=== PATIENT | female | born 1965 | race Caucasian/White ===

== ENCOUNTER 2021-03-26 16:30 | Inpatient (IN) ==
[2021-03-26] MEDS ORDERED: tiZANidine 4 MG TABLET PO PRN (22:31)
[2021-03-26] MEDS ORDERED: Acetaminophen 325 MG TABLET PO PRN (22:35)
[2021-03-26] MEDS ORDERED: Naloxone 0.4 MG/ML INJ IVP PRN (22:35)
[2021-03-26] MEDS ORDERED: Ondansetron 4 MG/2 ML VIAL IVP PRN (22:35)
[2021-03-26] MEDS ORDERED: Budesonide/Formoterol 160/4.5 1 PUFF INH IH PRN (22:45)
[2021-03-26] MEDS: 0.9 % Sodium Chloride 1,000 ML IVC SCH (23:26)
[2021-03-26] MEDS: *HR* HYDROmorphone 2 MG TABLET PO PRN (23:35)
[2021-03-26 23:46] LABS: Basophils # 0.1 K/mcL (0.0-0.2); Basophils % 0.6 %; Eosinophils # 0.8 K/mcL (0.0-0.6); Eosinophils % 7.3 %; Hematocrit 35.2 % (35.3-44.9); Hemoglobin 11.4 g/dL (11.5-15.4); Immature Granulocytes % 0.4 % (0-4); Lymphocytes # 1.8 K/mcL (0.6-4.6); Lymphocytes % 16.8 %; Mean Corpuscular HGB Conc 32.4 g/dL (31.6-35.5); Mean Corpuscular Hemoglobin 28.2 pg (28.0-33.3); Mean Corpuscular Volume 87.1 fL (83.0-100.0); Mean Platelet Volume 10.2 fL (9.4-12.4); Monocytes # 1.1 K/mcL (0.0-1.3); Monocytes % 10.6 %; Neutrophils # 6.7 K/mcL (1.6-8.9); Platelet Count 301 K/mcL (140-400); Red Blood Count 4.04 M/mcL (3.82-4.97); Red Cell Distribution Width 14.3 % (11.5-14.5); Segmented Neutrophils % 64.3 %; White Blood Count 10.4 K/mcL (4.3-11.1)
[2021-03-27 00:05] LABS: Alanine Aminotransferase 20 Units/L (7-52); Albumin 3.3 g/dL (3.5-5.7); Albumin/Globulin Ratio 1.1 (1.1-2.2); Alkaline Phosphatase 116 Units/L (34-104); Aspartate Amino Transferase 11 Units/L (13-39); BUN/Creatinine Ratio 20 (6-26); Bilirubin,Direct 0.1 mg/dL (0.0-0.2); Bilirubin,Indirect 0.4 mg/dL (0.0-1.0); Bilirubin,Total 0.5 mg/dL (0.3-1.0); Blood Urea Nitrogen 12 mg/dL (6-20); Calcium 8.5 mg/dL (8.6-10.3); Carbon Dioxide 25 mEq/L (23-29); Chloride 103 mEq/L (98-107); Chol/HDL Ratio 2.4 (0-4.9); Cholesterol 133 mg/dL (< 200); Globulin 3.1 g/dL (2.4-3.5); Glucose 107 mg/dL (70-105); HDL Cholesterol 56 mg/dL (40-59); Iron 12 mcg/dL (50-170); LDL Cholesterol,Calculated 64 mg/dL (< 100); Magnesium 1.8 mg/dL (1.6-2.6); Osmolality,Calculated 286 (280-300); Potassium 3.8 mEq/L (3.5-5.1); Sodium 138 mEq/L (136-145); Total Protein 6.4 g/dL (6.4-8.9); Triglycerides 65 mg/dL (< 150); eGFR For African Americans > 60 (> 60); eGFR For Non-African Americans > 60 (> 60)
[2021-03-27] MEDS ORDERED: Calcium Gluconate 1gm/50mL 1 GM/50 ML BAG IVPB ONE (00:08)
[2021-03-27 00:16] LABS: Thyroid Stimulating Hormone 1.671 mcIU/mL (0.340-5.600)
[2021-03-27 00:22] LABS: Ferritin 161 ng/mL (10-120)
[2021-03-27 00:44] LABS: Influenza A PCR Negative (Negative); Influenza B PCR Negative (Negative); Resp. Syncytial Virus PCR Negative (Negative)
[2021-03-27 00:44] LABS: Folate > 22.3 ng/mL (3.0-16.0); Vitamin B12 431 pg/mL (250-1100); Vitamin D 25 Hydroxy 9 ng/mL (30-80)
[2021-03-27 00:46] LABS: SARS-CoV-2 by PCR (In House) Negative (Negative)
[2021-03-27 01:00] LABS: Bilirubin,Urine Negative (Negative); Blood,Urine Small (Negative); Clarity,Urine Turbid (Clear); Color,Urine Light-Yellow (Yellow); Glucose,Urine (UA) Normal (Normal); Hyaline Casts,Urine Few per lpf (None Seen); Ketones,Urine Negative (Negative); Leukocyte Esterase,Urine Moderate (Negative); Mucus,Urine Few per lpf (None-Few); Nitrite,Urine Negative (Negative); Protein,Urine Trace mg/dL (Neg-Trace); Specific Gravity,Urine 1.022 (1.010-1.025); Squamous Epithelial Cell,Urine Few per hpf (None-Few); Urobilinogen,Urine Normal (Normal); WBC,Urine 15-30 per hpf (0-3)
[2021-03-27] MEDS: *HR* HYDROmorphone 2 MG TABLET PO PRN ×3 (04:38→14:58)
[2021-03-27 04:42] LABS: Mean Corpuscular HGB Conc 32.4 g/dL (31.6-35.5); Mean Corpuscular Hemoglobin 28.1 pg (28.0-33.3); Mean Corpuscular Volume 86.7 fL (83.0-100.0); Mean Platelet Volume 10.2 fL (9.4-12.4); Platelet Count 286 K/mcL (140-400); Red Blood Count 3.92 M/mcL (3.82-4.97); Red Cell Distribution Width 14.4 % (11.5-14.5); White Blood Count 10.8 K/mcL (4.3-11.1)
[2021-03-27 05:02] LABS: BUN/Creatinine Ratio 21 (6-26); Blood Urea Nitrogen 12 mg/dL (6-20); Calcium 8.9 mg/dL (8.6-10.3); Carbon Dioxide 26 mEq/L (23-29); Chloride 103 mEq/L (98-107); Glucose 99 mg/dL (70-105); Osmolality,Calculated 286 (280-300); Sodium 138 mEq/L (136-145); eGFR For African Americans > 60 (> 60); eGFR For Non-African Americans > 60 (> 60)
[2021-03-27] MEDS ORDERED: Folic Acid 1 MG TABLET PO SCH (09:00)
[2021-03-27] MEDS: Topiramate 25 MG TABLET PO SCH (09:12)
[2021-03-27] MEDS: lisinopriL 20 MG TABLET PO SCH (09:12)
[2021-03-27] MEDS: Cholecalciferol (D-3) 1,000 UNIT (25MCG) TABLET PO SCH (09:12)
[2021-03-27] MEDS: clonazePAM 0.5 MG TABLET PO SCH (09:13)
[2021-03-27] MEDS: hydrOXYzine pamoate 25 MG CAPSULE PO SCH ×2 (09:13→22:34)
[2021-03-27] MEDS: DilTIAZem CD (24hr) 120 MG CAP.ER.24H PO SCH (09:13)
[2021-03-27 09:29] LABS: Estimated Average Glucose 108 mg/dl; Hemoglobin A1C 5.4 %
[2021-03-27] MEDS: 0.9 % Sodium Chloride 1,000 ML IVC SCH (14:50)
[2021-03-27] MEDS: Cyanocobalamin (B-12) 1,000 MCG TABLET PO SCH (15:03)
[2021-03-27] MEDS: *HR* Heparin 5,000 UNIT/ML VIAL SQ SCH (17:25)
[2021-03-28] MEDS: *HR* HYDROmorphone 2 MG TABLET PO PRN (00:16)
[2021-03-28 04:48] LABS: Mean Corpuscular HGB Conc 32.4 g/dL (31.6-35.5); Mean Corpuscular Hemoglobin 28.1 pg (28.0-33.3); Mean Platelet Volume 9.9 fL (9.4-12.4); Platelet Count 289 K/mcL (140-400); Red Blood Count 3.91 M/mcL (3.82-4.97); Red Cell Distribution Width 14.2 % (11.5-14.5); White Blood Count 9.5 K/mcL (4.3-11.1)
[2021-03-28] MEDS: *HR* Heparin 5,000 UNIT/ML VIAL SQ SCH (05:05)
[2021-03-28 05:07] LABS: BUN/Creatinine Ratio 25 (6-26); Blood Urea Nitrogen 15 mg/dL (6-20); Calcium 8.8 mg/dL (8.6-10.3); Carbon Dioxide 27 mEq/L (23-29); Chloride 101 mEq/L (98-107); Glucose 102 mg/dL (70-105); Osmolality,Calculated 281 (280-300); Potassium 3.7 mEq/L (3.5-5.1); Sodium 135 mEq/L (136-145); eGFR For African Americans > 60 (> 60); eGFR For Non-African Americans > 60 (> 60)
[2021-03-28] MEDS ORDERED: Ringers Solution, Lactated 1,000 ML ONE (07:07)
[2021-03-28] MEDS ORDERED: Ringers Solution, Lactated 1,000 ML IVC SCH ×2 (07:15→14:15)
[2021-03-28 07:35] LABS: Troponin I < 0.03 ng/mL (< 0.04)
[2021-03-28] MEDS: Cyanocobalamin (B-12) 1,000 MCG TABLET PO SCH (08:15)
[2021-03-28] MEDS: Topiramate 25 MG TABLET PO SCH (08:15)
[2021-03-28] MEDS: lisinopriL 20 MG TABLET PO SCH (08:15)
[2021-03-28] MEDS: Cholecalciferol (D-3) 1,000 UNIT (25MCG) TABLET PO SCH (08:15)
[2021-03-28] MEDS: hydrOXYzine pamoate 25 MG CAPSULE PO SCH ×2 (08:15→22:22)
[2021-03-28] MEDS: clonazePAM 0.5 MG TABLET PO SCH (08:15)
[2021-03-28] MEDS: DilTIAZem CD (24hr) 120 MG CAP.ER.24H PO SCH (08:15)
[2021-03-28] MEDS ORDERED: *HR* Propofol 200 MG/20 ML VIAL IVP ONE (11:22)
[2021-03-28] MEDS ORDERED: Lidocaine -MPF 2% 5 ML VIAL ONE (11:22)
[2021-03-28] MEDS ORDERED: Ondansetron 4 MG/2 ML VIAL ONE (11:22)
[2021-03-28] MEDS ORDERED: *HR* Midazolam HCl 2 MG/2 ML VIAL ONE (11:22)
[2021-03-28] MEDS ORDERED: *HR* FentaNYL (PF) 100 MCG/2 ML VIAL ONE (11:22)
[2021-03-28] MEDS ORDERED: *HR* Rocuronium Bromide 50 MG/5 ML VIAL ONE (11:22)
[2021-03-28] MEDS ORDERED: Vancomycin 1,000 MG VIAL ONE (11:45)
[2021-03-28] MEDS ORDERED: *HR* FentaNYL (PF) 100 MCG/2 ML VIAL IVP PRN (12:55)
[2021-03-28] MEDS ORDERED: *HR* HYDROmorphone PF 0.5 MG/0.5 ML SYRINGE IVP PRN (12:55)
[2021-03-28] MEDS ORDERED: Tranexamic Acid 1,000 MG/10 ML VIAL ONE ×2 (13:10→14:14)
[2021-03-28] MEDS ORDERED: Sugammadex Sodium 200 MG/2 ML VIAL IV ONE (14:02)
[2021-03-28] MEDS ORDERED: Ketorolac 30 MG/ML VIAL ONE (14:13)
[2021-03-28] MEDS ORDERED: MOM Conc 10 ML UD.LIQ PO PRN ×2 (14:14→14:45)
[2021-03-28] MEDS ORDERED: Sennosides 8.6 MG TABLET PO PRN ×2 (14:14→14:45)
[2021-03-28] MEDS ORDERED: Naloxone 0.4 MG/ML INJ IVP PRN ×2 (14:14→14:45)
[2021-03-28] MEDS ORDERED: *HR* Promethazine 25 MG/ML VIAL IM PRN ×2 (14:14→14:45)
[2021-03-28] MEDS ORDERED: Ondansetron 4 MG/2 ML VIAL IVP PRN ×2 (14:14→14:45)
[2021-03-28] MEDS ORDERED: *HR* OxyCODONE Immed Rel 5 MG TABLET PO PRN (14:14)
[2021-03-28] MEDS ORDERED: tiZANidine 4 MG TABLET PO PRN (14:45)
[2021-03-28] MEDS ORDERED: Budesonide/Formoterol 160/4.5 1 PUFF INH IH PRN (14:45)
[2021-03-28] MEDS: Ascorbic Acid 500 MG TABLET PO SCH (16:07)
[2021-03-28] MEDS ORDERED: Ascorbic Acid 500 MG TABLET PO SCH (17:00)
[2021-03-28] MEDS: Ketorolac 30 MG/ML VIAL IVP SCH (18:00)
[2021-03-28] MEDS ORDERED: Ketorolac 30 MG/ML VIAL IVP SCH (18:00)
[2021-03-28] MEDS ORDERED: CeFAZolin 2 GM/120 ML BAG IVPB SCH (19:00)
[2021-03-28] MEDS: CeFAZolin 2 GM/120 ML BAG IVPB SCH (22:22)
[2021-03-28] MEDS: *HR* OxyCODONE Immed Rel 5 MG TABLET PO PRN (22:23)
[2021-03-29 04:55] LABS: Basophils % 0.3 %; Eosinophils # 0.1 K/mcL (0.0-0.6); Eosinophils % 0.7 %; Hematocrit 27.1 % (35.3-44.9); Immature Granulocytes % 0.7 % (0-4); Lymphocytes # 1.6 K/mcL (0.6-4.6); Lymphocytes % 15.2 %; Mean Corpuscular HGB Conc 32.8 g/dL (31.6-35.5); Mean Corpuscular Hemoglobin 28.4 pg (28.0-33.3); Mean Corpuscular Volume 86.6 fL (83.0-100.0); Monocytes # 1.4 K/mcL (0.0-1.3); Monocytes % 12.9 %; Neutrophils # 7.5 K/mcL (1.6-8.9); Platelet Count 270 K/mcL (140-400); Red Blood Count 3.13 M/mcL (3.82-4.97); Red Cell Distribution Width 13.8 % (11.5-14.5); Segmented Neutrophils % 70.2 %; White Blood Count 10.7 K/mcL (4.3-11.1)
[2021-03-29 04:59] LABS: Hemoglobin 8.9 g/dL (11.5-15.4)
[2021-03-29 05:15] LABS: BUN/Creatinine Ratio 23 (6-26); Blood Urea Nitrogen 17 mg/dL (6-20); Calcium 8.3 mg/dL (8.6-10.3); Carbon Dioxide 28 mEq/L (23-29); Chloride 101 mEq/L (98-107); Glucose 112 mg/dL (70-105); Osmolality,Calculated 282 (280-300); Potassium 4.3 mEq/L (3.5-5.1); Sodium 135 mEq/L (136-145); eGFR For African Americans > 60 (> 60); eGFR For Non-African Americans > 60 (> 60)
[2021-03-29] MEDS: Ketorolac 30 MG/ML VIAL IVP SCH ×4 (05:49→17:18)
[2021-03-29] MEDS: CeFAZolin 2 GM/120 ML BAG IVPB SCH (05:50)
[2021-03-29] MEDS: *HR* OxyCODONE Immed Rel 5 MG TABLET PO PRN (05:58)
[2021-03-29] MEDS ORDERED: Povidone-Iodine 45 ML, Sodium Chloride IRRigation 1,000 ML IR ONE (06:00)
[2021-03-29] MEDS ORDERED: TOTAL JOINT MIXTURE (100ML) INTRAART ONE (06:00)
[2021-03-29] MEDS: Ringers Solution, Lactated 1,000 ML IVC SCH (07:13)
[2021-03-29] MEDS: Cyanocobalamin (B-12) 1,000 MCG TABLET PO SCH (08:53)
[2021-03-29] MEDS: Topiramate 25 MG TABLET PO SCH (08:53)
[2021-03-29] MEDS: Ascorbic Acid 500 MG TABLET PO SCH ×2 (08:53→14:31)
[2021-03-29] MEDS: hydrOXYzine pamoate 25 MG CAPSULE PO SCH ×2 (08:53→20:53)
[2021-03-29] MEDS: Cholecalciferol (D-3) 1,000 UNIT (25MCG) TABLET PO SCH (08:54)
[2021-03-29] MEDS: clonazePAM 0.5 MG TABLET PO SCH (08:54)
[2021-03-29] MEDS: Multivit/Ca/Min/Fe/FA 1 TAB TABLET PO SCH (08:55)
[2021-03-29] MEDS: DilTIAZem CD (24hr) 120 MG CAP.ER.24H PO SCH (08:55)
[2021-03-29] MEDS ORDERED: lisinopriL 20 MG TABLET PO SCH (09:00)
[2021-03-29] MEDS ORDERED: Multivit/Ca/Min/Fe/FA 1 TAB TABLET PO SCH (09:00)
[2021-03-29] MEDS ORDERED: Aspirin Enteric Coated 325 MG Tablet PO SCH (14:18)
[2021-03-29] MEDS: Aspirin Enteric Coated 81 MG Tablet PO SCH ×2 (14:31→20:52)
[2021-03-29] MEDS ORDERED: 0.9 % Sodium Chloride 500 ML IV ONE (17:54)
[2021-03-29 18:54] LABS: Basophils # 0.1 K/mcL (0.0-0.2); Basophils % 0.6 %; Eosinophils # 0.4 K/mcL (0.0-0.6); Eosinophils % 4.4 %; Immature Granulocytes % 0.7 % (0-4); Lymphocytes # 1.3 K/mcL (0.6-4.6); Lymphocytes % 14.8 %; Mean Corpuscular Volume 87.4 fL (83.0-100.0); Mean Platelet Volume 10.4 fL (9.4-12.4); Monocytes # 0.9 K/mcL (0.0-1.3); Monocytes % 11.1 %; Neutrophils # 5.8 K/mcL (1.6-8.9); Platelet Count 266 K/mcL (140-400); Red Blood Count 2.86 M/mcL (3.82-4.97); Segmented Neutrophils % 68.4 %; White Blood Count 8.5 K/mcL (4.3-11.1)
[2021-03-30] MEDS: Ketorolac 30 MG/ML VIAL IVP SCH ×4 (00:38→16:46)
[2021-03-30 05:06] LABS: Basophils # 0.1 K/mcL (0.0-0.2); Basophils % 0.7 %; Eosinophils # 0.6 K/mcL (0.0-0.6); Eosinophils % 7.1 %; Hematocrit 24.7 % (35.3-44.9); Hemoglobin 8.2 g/dL (11.5-15.4); Immature Granulocytes % 0.7 % (0-4); Lymphocytes # 2.1 K/mcL (0.6-4.6); Lymphocytes % 24.4 %; Mean Corpuscular HGB Conc 33.2 g/dL (31.6-35.5); Mean Corpuscular Hemoglobin 28.7 pg (28.0-33.3); Mean Corpuscular Volume 86.4 fL (83.0-100.0); Mean Platelet Volume 10.2 fL (9.4-12.4); Monocytes # 0.9 K/mcL (0.0-1.3); Monocytes % 10.6 %; Neutrophils # 4.9 K/mcL (1.6-8.9); Platelet Count 277 K/mcL (140-400); Red Blood Count 2.86 M/mcL (3.82-4.97); Red Cell Distribution Width 14.1 % (11.5-14.5); Segmented Neutrophils % 56.5 %; White Blood Count 8.7 K/mcL (4.3-11.1)
[2021-03-30 05:21] LABS: BUN/Creatinine Ratio 36 (6-26); Blood Urea Nitrogen 25 mg/dL (6-20); Calcium 7.9 mg/dL (8.6-10.3); Carbon Dioxide 26 mEq/L (23-29); Chloride 104 mEq/L (98-107); Glucose 89 mg/dL (70-105); Osmolality,Calculated 288 (280-300); Potassium 3.6 mEq/L (3.5-5.1); Sodium 137 mEq/L (136-145); eGFR For African Americans > 60 (> 60); eGFR For Non-African Americans > 60 (> 60)
[2021-03-30 06:01] LABS: Hematocrit 25.5 % (35.3-44.9); Hemoglobin 8.2 g/dL (11.5-15.4)
[2021-03-30] MEDS: clonazePAM 0.5 MG TABLET PO SCH (08:51)
[2021-03-30] MEDS: Cholecalciferol (D-3) 1,000 UNIT (25MCG) TABLET PO SCH (08:51)
[2021-03-30] MEDS: hydrOXYzine pamoate 25 MG CAPSULE PO SCH (08:51)
[2021-03-30] MEDS: Cyanocobalamin (B-12) 1,000 MCG TABLET PO SCH (08:52)
[2021-03-30] MEDS: DilTIAZem CD (24hr) 120 MG CAP.ER.24H PO SCH (08:52)
[2021-03-30] MEDS: Ascorbic Acid 500 MG TABLET PO SCH ×2 (08:52→16:32)
[2021-03-30] MEDS: Aspirin Enteric Coated 81 MG Tablet PO SCH (08:52)
[2021-03-30] MEDS: Multivit/Ca/Min/Fe/FA 1 TAB TABLET PO SCH (08:53)
[2021-03-30] MEDS: Topiramate 25 MG TABLET PO SCH (08:53)
[2021-03-30] MEDS: Ringers Solution, Lactated 1,000 ML IVC SCH ×2 (08:53→08:54)
[2021-03-30 16:13] VITALS: BP 92/62; PULSE 79; TEMP 97.3; O2SAT 97
[2021-03-30] MEDS ORDERED: Cefdinir 300 MG CAPSULE PO SCH (21:00)
== END 2021-03-30 19:45 | disposition home health service (06) | DRG 323 ==
LOC: 4WAOSI → SUATTDRO 22:35
PROVIDERS: ADMIT Internal Medicine; ATTEND Internal Medicine